=== PATIENT | male | born 1945 | race Native Hawaiian/Other Pacific Islander ===

== ENCOUNTER 2019-12-04 14:29 | Emergency (ER) | payer OTHER ==
[~2019-12-04] VITALS: Ht 172.7 cm; Wt 99.8 kg
[2019-12-04 14:29] VITALS: BP 179/85; TEMP 99
[2019-12-04 14:58] LABS: PLATELET COUNT 209 K/uL (142-355)
[2019-12-04 15:07] LABS: POTASSIUM 4.4 mmol/L (3.6-5.2)
[2019-12-04] MEDS ORDERED: LEXAPRO10 MG PO (17:13)
[2019-12-04] MEDS ORDERED: MAGNSUS68 PO (17:14)
[2019-12-04] MEDS ORDERED: MINERAL OTIC (17:15)
[2019-12-04] MEDS ORDERED: PHENYTEK300 MG PO (17:16)
[2019-12-04] MEDS ORDERED: VITAMIN D2000 UNI1 PO (17:17)
[2019-12-04] MEDS ORDERED: LITHIUM CARB150 MG PO (17:17)
[2019-12-04] MEDS ORDERED: METF500T PO (17:18)
== END 2019-12-04 15:43 | disposition other institution (70) ==
LOC: ED 14:38
PROVIDERS: Family Medicine
DX: R46.89 Other symptoms and signs involving appearance and behavior (principal); F31.89 Other bipolar disorder; Z04.6 Encounter for general psychiatric examination, requested by authority
CPT/HCPCS: 80053; 85027; 93005; 99283; 99285